=== PATIENT | female | born 1990 | race Asian ===

== ENCOUNTER 2020-03-27 09:08 | Emergency (ER) | payer SELFPAY ==
[~2020-03-27] VITALS: Ht 157.5 cm; Wt 68.0 kg
[2020-03-27] MEDS ORDERED: FLUTICASONE PROPIONATE 50MCG/SPRAY BOTTLE BOTHNSTRLS SCH (10:15)
[2020-03-27] MEDS ORDERED: LORATADINE 10MG TABLET PO SCH (10:15)
[2020-03-27] MEDS ORDERED: PREDNISONE 20MG TABLET PO SCH (10:30)
[2020-03-27 10:50] VITALS: BP 110/74
== END 2020-03-27 10:58 | disposition home or self-care (01) ==
LOC: ER 09:08
DX: J34.89 Other specified disorders of nose and nasal sinuses (principal); J02.9 Acute pharyngitis, unspecified; Z20.828 Contact with and (suspected) exposure to other viral communicable diseases
CPT/HCPCS: 87635; 99284; C9803; J7512